=== PATIENT | male | born 1935 | race African-American/Black ===

== ENCOUNTER 2020-05-10 18:16 | Emergency (ER) | payer MEDICARE, OTHER ==
[2020-05-10] MEDS ORDERED: CYCLOBENZAPRINE5 MG ORAL (20:25)
[2020-05-10] MEDS ORDERED: IBUPROFEN600 M1 ORAL (20:25)
== END 2020-05-10 20:30 | disposition home or self-care (01) ==
DX: M54.2 Cervicalgia (principal); M54.5 Low back pain; I10 Essential (primary) hypertension; E11.9 Type 2 diabetes mellitus without complications; M51.26 Other intervertebral disc displacement, lumbar region; I70.90 Unspecified atherosclerosis; N28.1 Cyst of kidney, acquired; V43.52XA Car driver injured in collision with other type car in traffic accident, initial encounter; Y92.410 Unspecified street and highway as the place of occurrence of the external cause; M85.88 Other specified disorders of bone density and structure, other site